=== PATIENT | male | born 1960 | race Caucasian/White ===

== ENCOUNTER 2016-06-03 12:15 | Emergency (ER) | payer OTHER ==
[2016-06-03 12:36] VITALS: BP 114/83; PULSE 98; TEMP 98.6; BMI 25.0
--- NOTE | 2016-06-03 14:17 | PDOC ---
History of Present Illness - General Chief Complaint: Sore Throat Stated Complaint: SOB, FLU SYMPTOMS Time Seen by Provider: 06/03/16 12:55 History Source: Patient Exam Limitations: No Limitations - History of Present Illness Initial Comments: 06/03/16 14:13 CC BODY ACHES, COUGH X THIS AM; BOTH AND CHILD ALSO ILL Timing/Duration: 4-6 hours Severity: mild Modifying Factors: improves with: cold therapy Associated Symptoms: reports: cough, fever/chills, malaise. denies: rash Past History - Past Medical History Allergies/Adverse Reactions: Allergies Allergy/AdvReac Type Severity Reaction Status Date / Time azithromycin Allergy Itching Verified 06/03/16 12:33 Home Medications: Ambulatory Orders Lorazepam 1 mg PO DAILY PRN 02/02/15 Ibuprofen [Motrin -] 600 mg PO QID PRN #28 tablet 05/16/15 Lisinopril [Prinivil] 20 mg PO DAILY 05/16/15 HTN: Yes Psychiatric Problems: Yes (ANXIETY) - Psycho/Social/Smoking Cessation Hx Anxiety: No Suicidal Ideation: No Smoking History: Never smoked Have you smoked in the past 12 months: No Hx Alcohol Use: No Drug/Substance Use Hx: No Substance Use Type: None Review of Systems - Review of Systems Constitutional: Yes: Fever, Malaise. No: Chills HEENTM: Yes: Nose Pain, Nose Congestion Respiratory: Yes: Cough. No: Symptoms reported Cardiac (ROS): No: Symptoms Reported ABD/GI: No: Symptoms Reported : No: Symptoms Reported *Physical Exam - Vital Signs Last Vital Signs Temp Pulse Resp BP Pulse Ox 98.6 F 98 H 18 114/83 95 06/03/16 12:33 06/03/16 12:33 06/03/16 12:33 06/03/16 12:33 06/03/16 12:33 - Physical Exam General Appearance: Yes: Appropriately Dressed HEENT: positive: TMs Normal, Nasal Congestion, Rhinorrhea. negative: Sinus Tenderness, TM Bulging Neck: positive: Supple, Lymphadenopathy (R), Lymphadenopathy (L). negative: Tender, Rigid Respiratory/Chest: positive: Lungs Clear, Normal Breath Sounds. negative: Chest Tender, Respiratory Distress, Accessory Muscle Use Cardiovascular: positive: Regular Rhythm, Regular Rate. negative: Murmur Integumentary: positive: Normal Color, Dry, Warm. negative: Erythema, Rash ED Treatment Course - ADDITIONAL ORDERS Additional order review: 06/03/16 13:22 Influenza Types A,B Antigen (KISHA) - Final Nasopharyngeal Swab - Final 06/03/16 13:30 Group A Strep Rapid Antigen - Final Throat Medical Decision Making - Medical Decision Making 06/03/16 14:15 PLEASE ADVIL 400MG FOR FEVER AND PAIN; REST AT HOME *DC/Admit/Observation/Transfer Diagnosis at time of Disposition: Viral infection - Discharge Dispostion Disposition: HOME Condition at time of disposition: Stable Admit: No - Patient Instructions Additional Instructions: MOTRIN 400MG 3 TIMES DAILY FOR FEVER; REST AT HOME - Post Discharge Activity Work/School Note: Back to Work
== END 2016-06-03 15:46 | disposition home or self-care (01) ==
LOC: JERFT 12:15
DX: B34.9 Viral infection, unspecified (principal); F41.9 Anxiety disorder, unspecified; I10 Essential (primary) hypertension
CPT/HCPCS: 87070; 87430; 87804; 99281-25

== ENCOUNTER 2017-04-21 21:48 | Emergency (ER) | payer OTHER ==
[2017-04-21 23:06] VITALS: BP 114/78; PULSE 87; TEMP 98; BMI 24.3
--- NOTE | 2017-04-21 23:37 | PDOC ---
History of Present Illness - General Chief Complaint: Sore Throat Stated Complaint: COLD SYMPTOMS Time Seen by Provider: 04/21/17 22:59 History Source: Patient Exam Limitations: No Limitations - History of Present Illness Initial Comments: 04/21/17 23:33 Patient is a 57M with history of HTN and neck/back surgeries here today complaining of 1 month of sinus congestion and 2 days of bodyaches. Patient is also complaining of associated sinus pain in his right maxillary region. Patient reports taking multiple nasal sprays that dry out his nose, and reports some episodes of bloody nose. Denies fevers, chills, nausea, and vomiting. Denies chest pain, cough and shortness of breath. Past History - Past Medical History Allergies/Adverse Reactions: Allergies Allergy/AdvReac Type Severity Reaction Status Date / Time azithromycin Allergy Itching Verified 06/03/16 12:33 Home Medications: Ambulatory Orders Lorazepam 1 mg PO DAILY PRN 02/02/15 Ibuprofen [Motrin -] 600 mg PO QID PRN #28 tablet 05/16/15 Lisinopril [Prinivil] 20 mg PO DAILY 05/16/15 Benzocaine/Menthol [[facility] Sore Throat Lozenge] 1 each MM Q4HWA #20 lozenge HTN: Yes Psychiatric Problems: Yes (ANXIETY) - Suicide/Smoking/Psychosocial Hx Smoking History: Never smoked Have you smoked in the past 12 months: No Information on smoking cessation initiated: No Hx Alcohol Use: No Drug/Substance Use Hx: No Substance Use Type: None Review of Systems - Review of Systems Comments:: 04/21/17 23:35 GENERAL/CONSTITUTIONAL: No fever or chills. HEAD, EYES, EARS, NOSE AND THROAT: No change in vision. No sore throat. CARDIOVASCULAR: No chest pain or shortness of breath RESPIRATORY: No cough, wheezing, or hemoptysis. GASTROINTESTINAL: No nausea, vomiting, diarrhea or constipation. GENITOURINARY: No dysuria, frequency, or change in urination. MUSCULOSKELETAL: Positive for bodyaches, neck and back pain. SKIN: No rash NEUROLOGIC: Positive for headache. Negative for vertigo, loss of consciousness, or change in strength/sensation. ENDOCRINE: No increased thirst. No abnormal weight change HEMATOLOGIC/LYMPHATIC: No anemia, easy bleeding, or history of blood clots. *Physical Exam - Vital Signs Last Vital Signs Temp Pulse Resp BP Pulse Ox 98.0 F 87 20 114/78 96 04/21/17 22:58 04/21/17 22:58 04/21/17 22:58 04/21/17 22:58 04/21/17 22:58 - Physical Exam Comments: 04/21/17 23:36 GENERAL: Awake, alert, and fully oriented, in no acute distress HEAD: No signs of trauma, normocephalic, atraumatic EYES: PERRLA, EOMI, sclera anicteric, conjunctiva clear ENT: Auricles normal inspection, hearing grossly normal, nares patent, oropharynx clear without exudates. Moist mucosa. No maxillary or frontal sinus tenderness. LUNGS: No distress, speaks full sentences, clear to auscultation bilaterally HEART: Regular rate and rhythm, normal S1 and S2, no murmurs, rubs or gallops, peripheral pulses normal and equal bilaterally. EXTREMITIES: Normal inspection, Normal range of motion, no edema. No clubbing or cyanosis. NEUROLOGICAL: Cranial nerves II through XII grossly intact. Normal speech, normal gait, no focal sensorimotor deficits SKIN: Warm, Dry, normal turgor, no rashes or lesions noted. Medical Decision Making - Medical Decision Making 04/21/17 23:37 57M with history of HTN and spinal surgeries here today with sinus congestion. Vital signs stable and normal. Exam normal. No exudates. Patient has been seeing ENT for sinus congestion, has not seen them for a year. Will give ENT follow up and recommend Nielmed Sinus Rinse. *DC/Admit/Observation/Transfer Diagnosis at time of Disposition: Sinus congestion - Discharge Dispostion Disposition: HOME Condition at time of disposition: Good Admit: No - Referrals Referrals: Chi Vidal [Primary Care Provider] - Chi Royal MD [Staff Physician] - - Patient Instructions Printed Discharge Instructions: DI for Common Cold Additional Instructions: Please return if you have any new, worsening or concerning symptoms. Please use Neilmed Sinus rinse to help manage your sinus congestion. Please follow up with ENT for further evaluation of your chronic sinus issues, a number for a physician affiliated with this hospital is included in your paperwork. - Post Discharge Activity
--- NOTE | 2017-04-21 23:38 | PDOC ---
Attending Attestation - Resident Resident Name: Сергей Christianson - ED Attending Attestation I have performed the following: I have examined & evaluated the patient, The case was reviewed & discussed with the resident, I agree w/resident's findings & plan, Exceptions are as noted - Medical Decision Making 04/21/17 23:31 I, Dr. Vijaya Burogs, DO, attest that this document has been prepared under my direction and personally reviewed by me in its entirety. I further attest, that it accurately reflects all work, treatment, procedures and medical decision -making performed by me. 04/21/17 23:32 a/P: 57YO male with sinus congestion x 3 weeks -no fevers -sinus congestion - doubt bacterial given nontoxic appearance and no fevers -has seen ENT in the past -will call for follow up -doubt pt need abx at this point -no signs of strep throat -speaking in clear sentences no lymphadenopahty stable for d/c to home with nasal rinses and ENT follow up <Vijaya Burgos - Last Filed: 04/21/17 23:31> - HPI HPI: 04/21/17 23:44 The patient is a 57 year old male, with a significant past medical history of hypertension, anxiety, and multiple neck/back surgeries, who presents to the emergency department with sinus congestion for approximately 3 weeks. The patient describes his congestion as a pressure. He reports associated rhinorrhea , but denies any sore throat, fever, chills, cough, headache, or dizziness. Patient reports he has been using Afrin and nasal sprays, which relieve his congestion. He denies any associated chest pain, shortness of breath, diaphoresis, or palpitations. He reports having seen an ENT in the past for similar symptoms, who recommended the patient use sinus rinses for his symptoms. He denies any nausea or vomiting. He denies any recent travel or sick contacts. Allergies: Azithromycin Past Surgical History: Neck/Back surgery Social History: Non smoker. No ETOH or recreational drug use. PCP: Dr. Vidal - Physicial Exam PE: 04/21/17 23:44 Constitutional: Awake, alert, oriented. No acute distress. Head: Normocephalic. Atraumatic Eyes: PERRL. EOMI. Conjunctivae are not pale. ENT: No frontal sinus tenderness. No maxillary sinus tenderness. Boggy nares. Patient complaining of sinus congestion. Mucous membranes are moist and intact. Posterior pharynx without exudates or erythema. Uvula midline. Neck: Supple. Full ROM. No lymphadenopathy. Cardiovascular: Regular rate. Regular rhythm. S1, S2 regular. Distal pulses are 2+ and symmetric. Pulmonary/Chest: No evidence of respiratory distress. Clear to auscultation bilaterally No wheezing, rales or rhonchi. Abdominal: Soft and non-distended. There is no tenderness. No rebound, guarding or rigidity. No organomegaly. No palpable masses. Good bowel sounds. Back: No CVA tenderness. Musculoskeletal: No edema. No cyanosis. No clubbing. Full range of motion in all extremities. No calf tenderness. Radial/pedal pulses are intact and 2+ bilaterally Skin: Skin is warm and dry. No petechiae. No purpura. Neurological: Alert and oriented to person, place, and time. Cranial nerves II -XII are grossly intact. Normal speech. Strength is grossly symmetric. No sensory deficits. Psychiatric: Good eye contact. Normal interaction, affect and behavior. - Medical Decision Making 04/21/17 23:44 Documentation prepared by Larry Barrios, acting as medical assembler for Vijaya Burgos DO. <Larry Barrios - Last Filed: 04/21/17 23:52>
== END 2017-04-21 23:56 | disposition home or self-care (01) ==
LOC: JER 21:48
DX: J34.89 Other specified disorders of nose and nasal sinuses (principal); I10 Essential (primary) hypertension; F41.9 Anxiety disorder, unspecified
CPT/HCPCS: 99281-25

== ENCOUNTER 2021-07-27 22:28 | Observation (INO) | payer OTHER ==
[2021-07-27 22:49] VITALS: BMI 24.3
[2021-07-27] MEDS ORDERED: IBUPROFEN 400 MG TABLET (FP) PO ONE ×2 (23:16→23:23)
[2021-07-27 23:43] LABS: BASO % 0.4 % (0-2.0); EOS % 1.7 % (0-4.5); HEMATOCRIT 40.7 % (35.4-49); HEMOGLOBIN 13.9 GM/dL (11.7-16.9); LYMPH % 44.4 % (8-40); MCH 31.2 pg (25.7-33.7); MCHC 34.2 g/dl (32.0-35.9); MEAN CELL VOLUME 91.2 fl (80-96); MEAN PLT VOLUME 9.1 fl (7.5-11.1); MONO % 11.6 % (3.8-10.2); NEUT % 41.9 % (42.8-82.8); PLATELET COUNT 148 10^3/uL (134-434); RBC 4.47 M/mm3 (4.00-5.60); RDW 12.8 % (11.9-15.9); WHITE BLOOD COUNT 3.4 K/mm3 (4.0-10.0)
[2021-07-27 23:56] LABS: BLOOD UREA NITROGEN 17.1 mg/dL (7-18); CALCIUM 8.2 mg/dL (8.5-10.1)
[2021-07-27 23:57] LABS: ALBUMIN 3.6 g/dl (3.4-5.0)
[2021-07-27 23:59] LABS: CREATININE 0.9 mg/dL (0.55-1.3)
[2021-07-28 00:01] LABS: BILIRUBIN,TOTAL 0.4 mg/dL (0.2-1); TOT PROT 6.6 g/dl (6.4-8.2)
[2021-07-28] MEDS ORDERED: ASPIRIN 81 MG CHEWABLE TABLETS PO ONE (02:34)
[2021-07-28] MEDS ORDERED: ASPIRIN 81 MG CHEWABLE TABLETS ONE (03:07)
[2021-07-28] MEDS ORDERED: LORazepam 1 MG TABLET PO PRN ×2 (07:20→07:31)
[2021-07-28] MEDS ORDERED: LORazepam 1 MG TABLET ONE (08:16)
[2021-07-28 08:26] VITALS: TEMP 98.4
[2021-07-28] MEDS ORDERED: amLODIPine BESYLATE 2.5 MG TABLET (FP) ONE (08:57)
[2021-07-28] MEDS ORDERED: METOPROLOL TARTRATE 25 MG TABLET (FP) ONE (08:57)
[2021-07-28] MEDS ORDERED: amLODIPine BESYLATE 2.5 MG TABLET (FP) PO SCH (10:00)
[2021-07-28] MEDS ORDERED: METOPROLOL TARTRATE 25 MG TABLET (FP) PO SCH (10:00)
[2021-07-28 11:36] VITALS: BP 133/92; PULSE 67
== END 2021-07-28 11:50 | disposition home or self-care (01) ==
LOC: JER 22:28 → JERBED 07-28 03:02
PROVIDERS: ADMIT Internal Medicine; ATTEND Nurse Practitioner Acute Care
DX: I10 Essential (primary) hypertension (principal); R00.2 Palpitations; F41.9 Anxiety disorder, unspecified; R07.89 Other chest pain; Z87.898 Personal history of other specified conditions; M51.9 Unspecified thoracic, thoracolumbar and lumbosacral intervertebral disc disorder; R77.8 Other specified abnormalities of plasma proteins; Z88.1 Allergy status to other antibiotic agents; Z86.19 Personal history of other infectious and parasitic diseases
CPT/HCPCS: 36415; 71046-TC-FY; 80053; 80061; 83036; 84439; 84443; 84484; 85025; 93005; 93010; 93306-TC; 99285-25; C9803-CS; G0378; U0003; U0005

== ENCOUNTER 2022-06-04 18:55 | Emergency (ER) | payer OTHER ==
[2022-06-04 19:15] VITALS: BP 124/82; PULSE 80; RESP 18; TEMP 98.4; BMI 23.8
[2022-06-04 21:32] LABS: BASO % 0.4 % (0-2.0); EOS % 0.9 % (0-4.5); HEMATOCRIT 39.9 % (35.4-49); HEMOGLOBIN 13.6 GM/dL (11.7-16.9); LYMPH % 22.1 % (8-40); MCH 31.1 pg (25.7-33.7); MEAN CELL VOLUME 91.5 fl (80-96); MONO % 10.4 % (3.8-10.2); NEUT % 66.2 % (42.8-82.8); PLATELET COUNT 204 10^3/uL (134-434); RBC 4.36 M/mm3 (4.00-5.60); RDW 13.3 % (11.9-15.9); WHITE BLOOD COUNT 6.8 K/mm3 (4.0-10.0)
[2022-06-04 21:34] LABS: EPI CELLS 0 /uL (0-25.1); HYALINE CASTS 0 /uL (0-3.1); URINE APPEARANCE CLEAR; URINE BACTERIA 2 /uL (0-1359); URINE BILIRUBIN NEGATIVE (NEGATIVE); URINE COLOR YELLOW; URINE GLUCOSE (UA) NEGATIVE (NEGATIVE); URINE KETONE NEGATIVE (NEGATIVE); URINE LEUK ESTERASE NEGATIVE (NEGATIVE); URINE NITRITE NEGATIVE (NEGATIVE); URINE PROTEIN NEGATIVE (NEGATIVE); URINE RBC 49 /uL (0-23.9); URINE UROBILINOGEN 0.2 mg/dL (0.2-1.0); URINE WBC 1 /uL (0-25.8)
[2022-06-04 21:39] LABS: INR 1.01 (0.83-1.09); PROTHROMBIN TIME (PATIENT) 11.7 SEC (9.7-13.0)
[2022-06-04 21:42] LABS: ACTIVATED PTT 31.4 SECONDS (25.2-36.5)
[2022-06-04 22:04] LABS: BLOOD UREA NITROGEN 20.5 mg/dL (7-18); CALCIUM 8.9 mg/dL (8.5-10.1)
[2022-06-04 22:05] LABS: ALBUMIN 3.9 g/dl (3.4-5.0)
[2022-06-04 22:09] LABS: BILIRUBIN,TOTAL 0.6 mg/dL (0.2-1); CREATININE 1.2 mg/dL (0.55-1.3)
== END 2022-06-05 03:12 | disposition left against medical advice (07) ==
LOC: JER 18:55
DX: N20.0 Calculus of kidney (principal); N13.30 Unspecified hydronephrosis; R31.9 Hematuria, unspecified
CPT/HCPCS: 36415; 74176-TC; 80053; 81003; 85025; 85610; 85730; 86850; 86900; 86901; 87086; 99285-25

== ENCOUNTER 2024-01-19 04:13 | Day surgery (SDC) | payer OTHER ==
[2024-01-17 13:01] VITALS: BMI 25.7
[2024-01-19] MEDS ORDERED: VANCOMYCIN/WATER FOR INJ (PEG) 1,000 MG/200 ML BAG IVPB ONE (14:40)
[2024-01-19] MEDS: GENTAMICIN 80 MG PREMIXED IVPB 80 MG/100 ML BAG IVPB ONE (15:01)
[2024-01-19] MEDS ORDERED: GENTAMICIN SO4 80 MG/2 ML VIAL ONE (15:27)
[2024-01-19] MEDS ORDERED: VANCOMYCIN 1,000 MG VIAL (RESTRICTED TO ID ONLY) ONE (15:27)
[2024-01-19] MEDS: VANCOMYCIN/WATER FOR INJ (PEG) 1,000 MG/200 ML BAG IVPB ONE (15:44)
[2024-01-19] MEDS ORDERED: BUPIVACAINE HCL/PF 0.5% (5MG/ML) 10 ML VIAL ONE (16:08)
[2024-01-19] MEDS ORDERED: LIDOCAINE HCL 1%, 10 MG/ML (20ML VIAL) ONE (16:09)
[2024-01-19] MEDS ORDERED: PROPOFOL 20 ML ONE (16:14)
[2024-01-19] MEDS ORDERED: MIDAZOLAM HCL 2 MG/2 ML SINGLE DOSE VIAL ONE (16:14)
[2024-01-19] MEDS: ceFAZolin SODIUM 1 GM VIAL IVPB ONE (16:44)
[2024-01-19] MEDS ORDERED: ceFAZolin SODIUM 1 GM VIAL ONE (17:44)
[2024-01-19] MEDS ORDERED: ONDANSETRON 4 MG/2 ML VIAL ONE (19:28)
[2024-01-19] MEDS: ONDANSETRON 4 MG/2 ML VIAL IVPUSH PRN (19:42)
[2024-01-19] MEDS: PROMETHAZINE HCL 25 MG/1 ML VIAL IVPB PRN (19:52)
[2024-01-19] MEDS: AMPHOTERICIN B LIPOSOMAL 50 MG VIAL (RESTRICTED TO ID) IVPB ONE (19:52)
[2024-01-19] MEDS: LACTATED RINGERS SOLUTION 1,000 ML IV SCH (20:45)
[2024-01-19] MEDS ORDERED: CEFAZOLIN 1 GM in DEXTROSE 5%-WATER - 50 ML IVPB ONE (20:45)
[2024-01-19 22:24] VITALS: RESP 18
[2024-01-19] MEDS: ACETAMINOPHEN 500 MG TABLET (FP) PO PRN (23:51)
[2024-01-20] MEDS: CEFAZOLIN 1 GM in DEXTROSE 5%-WATER - 50 ML IVPB ONE (03:00)
[2024-01-20 10:21] VITALS: BP 124/83; PULSE 87; TEMP 97.3
== END 2024-01-20 10:36 | disposition home or self-care (01) ==
LOC: JASUSAT 04:13 → JASU-SURG 04:13 → J7W 21:06 → JASUSAT 01-20 10:36
PROVIDERS: ATTEND Urology
PROC: 0VUS0JZ Supplement Penis with Synthetic Substitute, Open Approach (ICD-10-PCS; principal; 2024-01-19 14:00)
DX: N52.8 Other male erectile dysfunction (principal); I10 Essential (primary) hypertension; E78.5 Hyperlipidemia, unspecified; F41.9 Anxiety disorder, unspecified; N40.0 Benign prostatic hyperplasia without lower urinary tract symptoms; R91.8 Other nonspecific abnormal finding of lung field; M54.16 Radiculopathy, lumbar region; M75.41 Impingement syndrome of right shoulder; Z87.11 Personal history of peptic ulcer disease; M96.1 Postlaminectomy syndrome, not elsewhere classified
CPT/HCPCS: 54405; C1813; 94760

== ENCOUNTER 2024-02-23 04:45 | Day surgery (SDC) | payer OTHER ==
[2024-02-18 17:37] VITALS: BMI 25.7
[2024-02-23] MEDS ORDERED: ONDANSETRON 4 MG/2 ML VIAL IVPUSH PRN (13:07)
[2024-02-23] MEDS ORDERED: LACTATED RINGERS SOLUTION 1,000 ML IV SCH (13:15)
[2024-02-23] MEDS ORDERED: LIDOCAINE HCL/PF 2% SDV 5ML VIAL ONE (13:22)
[2024-02-23] MEDS ORDERED: DEXAMETHASONE SOD PHOSPHATE 4 MG/1 ML VIAL ONE (13:22)
[2024-02-23] MEDS ORDERED: ACETAMINOPHEN INJECTION 100 ML ONE (13:28)
[2024-02-23] MEDS ORDERED: PROPOFOL 40 ML ONE (13:29)
[2024-02-23] MEDS ORDERED: MIDAZOLAM HCL 2 MG/2 ML SINGLE DOSE VIAL ONE (13:30)
[2024-02-23] MEDS ORDERED: VANCOMYCIN 1,000 MG VIAL (RESTRICTED TO ID ONLY) ONE ×2 (13:31→13:42)
[2024-02-23] MEDS ORDERED: GENTAMICIN SO4 80 MG/2 ML VIAL ONE ×2 (13:31→13:42)
[2024-02-23] MEDS ORDERED: PROPOFOL 60 ML ONE (13:57)
[2024-02-23] MEDS ORDERED: ceFAZolin SODIUM 1 GM VIAL ONE (14:40)
[2024-02-23] MEDS: ceFAZolin SODIUM 1 GM VIAL IVPB ONE (14:50)
[2024-02-23 18:32] VITALS: RESP 18
[2024-02-23 19:58] VITALS: BP 122/73; PULSE 85; TEMP 97.5
== END 2024-02-23 19:45 | disposition home or self-care (01) ==
LOC: JASU-SURG 04:45
PROVIDERS: ATTEND Urology
PROC: 0VPS0JZ Removal of Synthetic Substitute from Penis, Open Approach (ICD-10-PCS; 2024-02-23)
PROC: 0VUS0JZ Supplement Penis with Synthetic Substitute, Open Approach (ICD-10-PCS; principal; 2024-02-23 14:30)
DX: T83.490A Other mechanical complication of implanted penile prosthesis, initial encounter (principal)
CPT/HCPCS: 54410; C1813; 94760; J0131